=== PATIENT | female | born 1950 | race Caucasian/White ===

== ENCOUNTER 2018-08-30 05:25 | Emergency (ER) | payer MEDICARE ==
[~2018-08-30] VITALS: Ht 162.5 cm; Wt 68.0 kg
[2018-08-30] MEDS ORDERED: LOSARTAN POTASS25 M1 PO (05:29)
[2018-08-30] MEDS ORDERED: AMITRIPTYLINE50 MG PO (05:30)
== END 2018-08-30 06:16 | disposition home or self-care (01) ==
LOC: ED 05:25
DX: M25.462 Effusion, left knee (principal); Z79.899 Other long term (current) drug therapy; Z98.890 Other specified postprocedural states